=== PATIENT | female | born 1975 | race Caucasian/White ===

== ENCOUNTER 2016-09-26 04:31 | Emergency (ER) | payer BC ==
[~2016-09-26 04:31] MED LIST: GLUCOTROL5 PO; GLUCPH PO; HYDROCHLOROT12.5 MG PO; PROTONIX PO; XANAX2 MG PO
== END 2016-09-26 05:01 | disposition home or self-care (01) ==
LOC: ER 04:31
DX: M54.5 Low back pain (principal); F17.200 Nicotine dependence, unspecified, uncomplicated; I10 Essential (primary) hypertension; E11.9 Type 2 diabetes mellitus without complications; Z79.84 Long term (current) use of oral hypoglycemic drugs; Z79.899 Other long term (current) drug therapy
CPT/HCPCS: 82962; 96372; 99283; J1170; J2360